=== PATIENT | female | born 1975 | race Caucasian/White ===

== ENCOUNTER → 2019-09-03 | Outpatient (CLI) | payer BC ==
--- NOTE | 2019-09-04 09:14 | XR ---
Bilateral hands HISTORY: Hand pain, numbness and tingling 3 views of each hand submitted on a total 6 images. Bone mineralization, joint spaces and alignment are maintained. Mild hypertrophic change present at t he distal interphalangeal joints of the second and third digits, fifth digit of the left hand, second and third digits of the right hand. IMPRESSION: Mild osteoarthritis.
== END | disposition home or self-care (01) ==
LOC: RADXRMAIN 14:46
PROVIDERS: ATTEND Family Medicine
DX: M19.042 Primary osteoarthritis, left hand (principal); M19.041 Primary osteoarthritis, right hand

== ENCOUNTER → 2020-02-22 | Outpatient (CLI) | payer BC ==
--- NOTE | 2020-02-22 13:06 | XR ---
EXAMINATION TYPE: XR chest 2V DATE OF EXAM: 02/22/2020 COMPARISON: NONE TECHNIQUE: PA and lateral views submitted. HISTORY: Presurgical FINDINGS: The lungs are clear and there is no pneumothorax, pleural effusion, or focal pneumonia. Heart size normal. No overt failure. Biapical pleural thickening. Hypertrophic and degenerative change of the sp ine. IMPRESSION: 1. No acute process.
== END ==
LOC: LABWHC1 11:57
PROVIDERS: ATTEND Neurological Surgery
DX: M50.121 Cervical disc disorder at C4-C5 level with radiculopathy (principal); M50.122 Cervical disc disorder at C5-C6 level with radiculopathy
CPT/HCPCS: 71046; U0003

== ENCOUNTER → 2020-02-22 | Outpatient (CLI) | payer BC ==
--- NOTE | 2020-02-24 13:09 | ECHOF ---
Referral Reason:R94.31 abnormal echocardiogram MEASUREMENTS -------- HEIGHT: 180.3 cm WEIGHT: 181.4 kg BP: IVSd: 1.3 cm (0.6 - 1.1) LVIDd: 4.1 cm (3.9 - 5.3) LVPWd: 1.3 cm (0.6 - 1.1) IVSs: 1.6 cm LVIDs: 2.6 cm LVPWs: 1.6 cm LA Diam: 3.2 cm (2.7 - 3.8) RVIDd: 3.4 cm (< 3.3) LAESV Index (A-L): 17.95 ml/m Ao Diam: 3.2 cm (2.0 - 3.7) AV Cusp: 2.5 cm (1.5 - 2.6) EPSS: 0.4 cm MV E Amaury: 0.95 m/s MV DecT: 254 ms MV A Amaury: 0.90 m/s MV E/A Ratio: 1.05 RAP: 5.00 mmHg RVSP: 21.28 mmHg MV EF SLOPE: 50.66 mm/s (70 - 150) MV EXCURSION: 13.19 mm (> 18.000) FINDINGS -------- Sinus rhythm. This was a technically adequate study. The left ventricular size is normal. There is mild concentric left ventricular hypertrophy. Overa ll left ventricular systolic function is normal with, an EF between 60 - 65 %. The right ventricle is mildly enlarged. Normal LA size by volume 22+/-6 ml/m2. The right atrium is normal in size. Interatrial and interventricular septum intact. The aortic valve is trileaflet and appears structurally normal. The mitral valve is normal. The tricuspid valve appears structurally normal. There is no pulmonic regurgitation present. The aortic root size is normal. Normal inferior vena cava with normal inspiratory collapse consistent with estimated right atrial pre ssure of 5 mmHg. There is no pericardial effusion. CONCLUSIONS -------- 1. Sinus rhythm. 2. This was a technically adequate study. 3. The left ventricular size is normal. 4. There is mild concentric left ventricular hypertrophy. 5. Overall left ventricular systolic function is normal with, an EF between 60 - 65 %. 6. The aortic valve is trileaflet and appears structurally normal. 7. The mitral valve is normal. 8. There is no pericardial effusion. [employer]: Amarilys Weeks RDCS
== END | disposition home or self-care (01) ==
LOC: RADECHMAIN 13:57
PROVIDERS: ATTEND Family Medicine
DX: R94.31 Abnormal electrocardiogram [ECG] [EKG] (principal)
CPT/HCPCS: 93306

== ENCOUNTER → 2021-05-14 | Outpatient (CLI) | payer OTHER ==
--- NOTE | 2021-05-14 12:16 | XR ---
Left foot HISTORY: M54.9, M79.672 3 views of the left foot Bone mineralization, joint spaces and alignment are maintained. No fracture or dislocation. There is a plantar calcaneal spur. There is a focal area of cortical thickening involving the proximal fifth m etatarsal, no definite periostitis. IMPRESSION: Plantar calcaneal spur. Focal cortical thickening of the proximal fifth metatarsal as wesly cribed could be related to stress changes, no evident stress fracture at this time, correlate for pre vious injury, pain
--- NOTE | 2021-05-14 12:40 | XR ---
Lumbosacral spine HISTORY: M54.9, M79.672 5 views of the lumbosacral spine, no comparisons There is no evidence spondylolysis or spondylolisthesis. Lumbar vertebral bodies show preserved heigh t and bone mineralization. Loss of disc height is present at the vertebral levels L4-5 and L5-S1, the re is multilevel spondylosis. Sclerosis is present in the posterior elements of the lower lumbar spin e. IMPRESSION: Degenerative disc disease and facet arthropathy.
--- NOTE | 2021-05-14 12:56 | XR ---
Cervical spine HISTORY: N54.9, M79.672 4 views of the cervical spine Intervertebral disc replacement changes present at C4-5. At C5-6 there is loss of disc and spondylosi s, C7-T1 not seen. Prevertebral soft tissues are normal. Postprocedural changes noted at the level of the heart palate. IMPRESSION: Postoperative changes, degenerative disc disease.
--- NOTE | 2021-05-14 14:39 | XR ---
Thoracic spine HISTORY: M54.9, M79.672 Frontal and lateral views of the thoracic spine on 3 images There is multilevel spondylosis. There is a spinal curvature. Thoracic vertebral bodies show preserve d height and bone mineralization. Some loss of disc height and intervertebral levels in the midthorac ic spine is noted. IMPRESSION: Degenerative disc disease, mild spinal curvature.
== END | disposition home or self-care (01) ==
LOC: RADXRMAIN 11:00
PROVIDERS: ATTEND Family Medicine
DX: M51.36 Other intervertebral disc degeneration, lumbar region (principal); M46.96 Unspecified inflammatory spondylopathy, lumbar region; M77.32 Calcaneal spur, left foot
CPT/HCPCS: 72040; 72072; 72110

== ENCOUNTER → 2021-06-05 | Outpatient (CLI) | payer OTHER ==
--- NOTE | 2021-06-05 15:56 | XR ---
Lumbar spine with flexion and extension views HISTORY: Low back pain M43.16,M47.26 7 views the lumbar spine submitted and correlated prior lumbar spine 05/14/2021 Lumbar vertebral bodies show stable height, alignment, and bone mineralization. No evident spondyloly sis or spondylolisthesis. Loss of disc height is present L4-5 and L5-S1. Sclerosis present in the pos terior elements of the lower lumbar spine. There is multilevel spondylosis present. No change in alig nment on flexion and extension views. IMPRESSION: Degenerative disc disease and facet arthropathy.
== END | disposition home or self-care (01) ==
LOC: RADXRMAIN 14:16
PROVIDERS: ATTEND Neurological Surgery
DX: M43.16 Spondylolisthesis, lumbar region (principal); M47.26 Other spondylosis with radiculopathy, lumbar region
CPT/HCPCS: 72114